=== PATIENT | male | born 1980 | race Caucasian/White ===

== ENCOUNTER → 2016-04-19 | Day surgery (SDC) | payer OTHER ==
[2016-04-09 08:36] VITALS: BMI 42.0
[2016-04-09 09:33] LABS: BASO % 0.3 %; BASO ABS # 0.03 K/uL (0-0.2); COMPLETE YES; EOS % 5.2 %; HEMATOCRIT 45.1 % (42-52); IG% 0.5 %; LYMPH % 18.7 %; LYMPH ABS # 1.73 K/uL (1.2-3.4); MEAN CELL VOLUME 87.2 fL (80-100); MEAN CORPUSCULAR HEMOGLOBIN 29.2 pg (25-34); MEAN CORPUSCULAR HGB CONC 33.5 g/dl (32-36); MEAN PLATELET VOLUME 10.8 fL (7.4-10.4); MONO % 12.4 %; NEUT % 62.9 %; PLATELET COUNT 212 K/uL (130-400); RED BLOOD COUNT 5.17 M/uL (4.7-6.1); WHITE BLOOD COUNT 9.25 K/uL (4.8-10.8)
[2016-04-09 09:53] LABS: BUN/CREATININE RATIO 14.9 (10-20); CALCIUM 9.1 mg/dl (8.5-10.1); CREATININE 0.65 mg/dl (0.60-1.40); POTASSIUM 4.3 mmol/L (3.5-5.1)
[~2016-04-19] VITALS: Ht 170.2 cm; Wt 122.2 kg
[~2016-04-19] MED LIST: ATROPINE SULFATE 0.1 MG/ML 5ML SYR IV PRN; BUPIVACAINE 0.5 % 5 MG/1 ML MPF 30ML VIAL ONE; CLINDAMYCIN PHOS 150 MG/ML 2 ML VIAL ONE; DEXAMETHASONE SOD INJ 4 MG/ML VIAL ONE; EpHEDrine SULFATE INJ 50 MG/ML AMP IV PRN; FENTANYL CITRATE INJ 50 MCG/1 ML 2 ML VIAL ONE; GLYCOPYRROLATE INJ 0.2 MG/ML VIAL ONE; HYDROmorphone INJ 1 MG/ML SYR IV PRN; KETOROLAC TROMETHAMINE 30 MG/ML VIAL ONE; LACTATED RINGER'S 1000ML 1,000 ML IV SCH; LIDOCAINE HCL 1% 20 ML VIAL ONE; LIDOCAINE HCL 2% 2 ML VIAL (20MG/ML) ONE; MIDAZOLAM HCL 1 MG/ML 2ML VIAL ONE; MoRPHine SULFATE 4 MG/ML 1 ML CARP\\VIAL IV PRN; NEOSTIGMINE METHYLSULFATE 5 MG/5 ML SYR ONE; ONDANSETRON INJ 2 MG/ML 2 ML VIAL IV PRN; ONDANSETRON INJ 2 MG/ML 2 ML VIAL ONE; OXYCODONE/ACETAMINOPHEN 5-325 TAB PO PRN; PROMETHAZINE HCL INJ 6.25 MG in SODIUM CHLORIDE 0.9% 50ML 50 ML IV PRN; PROPOFOL IV EMULSION 10 MG/ML 20 ML VIAL IV ONE; ROCURONIUM BROMIDE 10 MG/ML 5 ML VIAL ONE; SODIUM CHLORIDE 0.9% 1000ML 1,000 ML IV SCH; SUCCINYLCHOLINE CHLORIDE 20 MG/ML 10 ML VIAL IV ONE
[2016-04-19 05:37] VITALS: BP 131/79; PULSE 82; TEMP 37; O2SAT 96; Ht 170.2 cm; Wt 122.2 kg
--- NOTE | 2016-04-19 07:08 | History & Physical Bridge Note ---
H&P Re-Evaluation Bridge Note: I have examined the patient, reviewed the History & Physical and in the interval since the performance of the History & Physical I have noted the following changes of clinical significance: No changes noted
--- NOTE | 2016-04-19 08:25 | [facility] Post Operative Brief Note ---
Immediate Operative Summary Operative Date Apr 19, 2016. Pre-Operative Diagnosis Umbilical Hernia Post-Operative Diagnosis Umbilical Hernia Procedure(s) Performed Umbilical Hernia Repair With Mesh Surgeon Dr Mookie Pandey Continuous Miner Operator Helper Surgeon(s) Nilda Ingram PA-C Estimated Blood Loss 5ML Findings See dictation Specimens NONE Drains None Anesthesia General Complication(s) None Disposition Recovery Room / PACU
--- NOTE | 2016-04-19 08:27 | Discharge Instructions ---
Discharge Instructions Admission Reason for Admission: Umbilical Hernia Discharge Discharge Diagnosis / Problem: Same Discharge Goals Goal(s): Decrease discomfort Activity Recommendations Activity Limitations: per Instructions/Follow-up section Lifting Limitations: no more than 10 pounds Shower/Bathe: tomorrow (Shower only) . Instructions / Follow-Up Instructions / Follow-Up ACTIVITY RECOMMENDATIONS: * Walk as much as possible. * No heavy lifting (>10 lbs.) for 2 weeks. SPECIAL CARE INSTRUCTIONS: * Ice to hernia repair site on and off until bedtime tonight. * May shower in 24 hours. Let water run over area and pat dry. * Remove plastic dressing and cotton ball in 4 days. * Leave steri strips on for one week. * Call the surgeon's office with any questions or concerns - (ex. temperature higher than 101 degrees F, excessive bleeding or pain). MEDICATIONS: Resume previous medications unless instructed otherwise by your surgeon. * Ibuprofen 600 mg every 6 hours with food * Percocet 1 every 4 hours, as needed for pain FOLLOW UP VISIT: If not already scheduled, please call the office to schedule a two week follow- up appointment. Office number Current Hospital Diet Patient's current hospital diet: Discharge Diet Recommended Diet: Regular Diet Procedures Procedures Performed: Umbilical Hernia Repair With Mesh Pending Studies Studies pending at discharge: no Medical Emergencies . Who to Call and When: Medical Emergencies: If at any time you feel your situation is an emergency, please call 911 immediately. . Non-Emergent Contact Non-Emergency issues call your: Primary Care Provider, Surgeon Call Non-Emergent contact if: your pain is worsening, wound has increased redness, wound has increased pain . "Provider Documentation" section prepared by Mookie Pandey. VTE Core Measure Inpt VTE Proph given/why not?: Treatment not indicated
[2016-04-19] MEDS: FENTANYL CITRATE INJ 50 MCG/1 ML 2 ML VIAL IV PRN ×3 (08:46→08:56)
--- NOTE | 2016-04-19 09:22 | Anesthesiology Progress Note ---
Anesthesia Post Op Note Date & Time Apr 19, 2016 at 09:22 Vital Signs Pain Intensity: 1 Vital Signs Past 12 Hours Date Time Temp Pulse Resp B/P Pulse Ox O2 Delivery O2 Flow Rate FiO2 04/19/16 09:11 36.9 124/81 04/19/16 09:07 71 16 93 04/19/16 09:07 73 04/19/16 09:06 113/75 04/19/16 09:02 76 15 04/19/16 09:02 76 15 98 04/19/16 09:01 147/79 04/19/16 08:57 75 14 04/19/16 08:57 76 14 98 04/19/16 08:56 155/80 04/19/16 08:52 85 16 98 04/19/16 08:52 84 16 04/19/16 08:51 154/80 04/19/16 08:50 Nasal Cannula 2 04/19/16 08:47 83 17 04/19/16 08:47 83 17 98 04/19/16 08:46 148/90 04/19/16 08:42 84 17 97 04/19/16 08:42 84 17 04/19/16 08:41 151/87 04/19/16 08:37 37.1 85 16 151/87 98 Mask 10 04/19/16 05:37 37 82 18 131/79 96 Room Air Notes Mental Status: alert / awake / arousable, participated in evaluation Pt Amnestic to Procedure: Yes Nausea / Vomiting: adequately controlled Pain: adequately controlled Airway Patency, RR, SpO2: stable & adequate BP & HR: stable & adequate Hydration State: stable & adequate Anesthetic Complications: no major complications apparent
[2016-04-19 09:25] VITALS: BP 133/77; PULSE 89; TEMP 37.2; O2SAT 95
[2016-04-19 09:55] VITALS: BP 144/71; PULSE 91; O2SAT 94
[2016-04-19 10:25] VITALS: BP 137/68; PULSE 88; O2SAT 94
[2016-04-19 10:58] VITALS: BP 138/72; PULSE 89; TEMP 37.1; O2SAT 93
--- NOTE | 2016-04-19 11:23 | OPERATIVE REPORT ---
DATE OF OPERATION: 04/19/2016 PREOPERATIVE DIAGNOSIS: Umbilical hernia. POSTOPERATIVE DIAGNOSIS: Same. PROCEDURE: Repair of umbilical hernia. SURGEON: Dr. Pandey. SKOOG PATCHING MACHINE OPERATOR: Nilda Ingram PA-C. FINDINGS: The patient had a 1.8 cm fascial defect. There was a larger hernia sac. It contained omentum. There was no bowel. There was no evidence of incarceration or strangulation. There were no other fascial defects identified. TECHNIQUE: The patient was given a general anesthetic and the area was prepped and draped in the usual sterile fashion. A transverse infraumbilical incision was made, carried down through the subcutaneous tissue. The hernia sac was identified and off the dermis of the overlying skin. It was then away from the connective tissue around the entire circumference of the hernia sac down to the edge of the fascial opening. This was initially grasped on the left side and a plane was established between the hernia sac and peritoneum and the fascial edge. This dissection was then carried inferiorly and superiorly. I then was able to follow the edge around towards the right side in performing some more dissection freeing the sac. I then opened the sac and the omentum away from the internal portion of the sac. There were some adhesions there that were divided. That allowed me then to reduce the omentum back into the abdomen. The opening of the hernia sac was then closed with a running 2-0 Vicryl. There was one other rent in the peritoneum that was closed with a [id number] suture of 2-0 Vicryl. I then was able to place that back in its anatomic position and elevate the edge of the fascia and separate the peritoneum creating a retrofascial/preperitoneal space. That was done for at least 3 cm surrounding the whipped of the hernia defect in all directions. An 8 cm C-QUR V-patch was then placed in the preperitoneal retrofascial position. It was sitting nicely. The struts of the mesh were approximated to the edges of the fascia using 2-0 PDS. Two horizontal mattress sutures were also used on each side of the defect to secure the mesh to the undersurface of the fascia and that was done with 0 PDS. The defect was then closed with a running #1 PDS. The area was inspected for bleeding and none was seen. The skin was closed with running 4-0 Monocryl. The skin was anesthetized with 0.5% Marcaine. The skin was cleansed, dried, benzoin placed, Steri-Strips applied. A cotton ball placed in the umbilicus and an Op-Site placed over it. The estimated blood loss was 5 mL. Sponge, needle and instrument counts were correct prior to closure. The patient tolerated surgical procedure without complication and was transferred to recovery. I attest to the content of the Intraoperative Record and any orders documented therein. Any exceptions are noted below. SUNNYD
== END | disposition home or self-care (01) ==
LOC: C.ACU 05:15
PROVIDERS: ATTEND Surgery
DX: K42.9 Umbilical hernia without obstruction or gangrene (principal); F17.210 Nicotine dependence, cigarettes, uncomplicated